=== PATIENT | female | born 1955 | race Caucasian/White ===

== ENCOUNTER 2019-07-16 10:05 | Emergency (ER) | payer MEDICARE ==
[~2019-07-16] VITALS: Ht 175 cm; Wt 72.0 kg
[2019-07-16 10:58] LABS: BASOPHILS % (AUTO) 1 % (0-10); EOSINOPHILS # (AUTO) 0.1 10^3/uL (0.0-0.3); EOSINOPHILS % (AUTO) 4 % (0-10); HEMATOCRIT 40 % (35-52); HEMOGLOBIN 13.8 G/DL (11.5-16.0); LYMPHOCYTES # (AUTO) 0.9 X 10^3 (1.0-4.0); LYMPHOCYTES % (AUTO) 24 % (12-44); MEAN CORPUSCULAR HEMOGLOBIN 31 PG (25-34); MEAN CORPUSCULAR HGB CONC 34 G/DL (32-36); MEAN CORPUSCULAR VOLUME 90 FL (80-99); MEAN PLATELET VOLUME 9.9 FL (7.4-10.4); MONOCYTES # (AUTO) 0.4 X 10^3 (0.0-1.0); MONOCYTES % (AUTO) 12 % (0-12); NEUTROPHILS # (AUTO) 2.3 X 10^3 (1.8-7.8); NEUTROPHILS % (AUTO) 60 % (42-75); PLATELET COUNT 237 10^3/uL (130-400); RED CELL DISTRIBUTION WIDTH 12.6 % (10.0-14.5); WHITE BLOOD COUNT 3.8 10^3/uL (4.3-11.0)
--- NOTE | 2019-07-16 10:59 | NUR ---
SEE LIST FOR CURRENT MEDS
[2019-07-16] MEDS ORDERED: hydrALAZINE (APESOLINE) 20 MG/ML VIAL IV ONE (11:00)
[2019-07-16] MEDS ORDERED: RT-ALBUTEROL/IPRATROPIUM 3 ML (DUONEB) VIAL INH ONE (11:00)
[2019-07-16 11:11] LABS: INR 0.9 (0.8-1.4); PROTHROMBIN TIME PATIENT 12.7 SEC (12.2-14.7)
[2019-07-16 11:18] LABS: ALBUMIN 4.1 GM/DL (3.2-4.5); BILIRUBIN,TOTAL 0.3 MG/DL (0.1-1.0); CALCIUM 9.5 MG/DL (8.5-10.1); CREATININE SERUM 1.08 MG/DL (0.60-1.30); POTASSIUM 4.1 MMOL/L (3.6-5.0); TOTAL PROTEIN 7.1 GM/DL (6.4-8.2)
--- NOTE | 2019-07-16 11:24 | Diagnostic Imaging Report ---
INDICATION: Shortness of air. COMPARISON: None available. TECHNIQUE: Single radiograph of the chest dated 07/16/2019. FINDINGS: The cardiac silhouette and pulmonary vasculature are within normal limits. The lungs are clear of focal pulmonary opacity. No pleural effusion. No pneumothorax. No acute osseous abnormality. IMPRESSION: No acute cardiopulmonary abnormality. Dictated by: Dictated on workstation # [id number]
--- NOTE | 2019-07-16 11:35 | ED General ---
General Chief Complaint: Respiratory Problems Stated Complaint: SOA Nursing Triage Note: PT CO OF SOA AMBULATED TO ROOM 5. PT O2 SAT 89% ON ROOM AIR. PT STATES HAS HAD COLD FOR A FEW DAYS. HAS SEVERAL AUTOIMMUNE PROBLEMS. Nursing Sepsis Screen: No Definite Risk Source of Information: Patient Exam Limitations: No Limitations History of Present Illness Date Seen by Provider: Jul 16, 2019 Time Seen by Provider: 10:36 Initial Comments Here with report of low O2 sat and has had a cold for several days. She does have history of lupus as well as rheumatoid arthritis and she is on immune modulating her medication including CellCept. Denies recent fevers. States overnight it got much worse. She was using her albuterol inhaler at home but that didn't help. She has history of mild COPD but hasn't had significant problems with that. Used to smoke but does not anymore and smoked only lightly she states. Timing/Duration: 1 Week, Getting Worse Severity: Moderate Associated Systoms: No Chest Pain, No Fever/Chills, No Headaches, No Nausea/Vomiting; Shortness of Air, Weakness Allergies and Home Medications Allergies Coded Allergies: Sulfa (Sulfonamide Antibiotics) (Verified Allergy, Unknown, 07/16/19) erythromycin base (Verified Allergy, Unknown, 07/16/19) Patient Home Medication List Home Medication List Reviewed: Yes Review of Systems Review of Systems Constitutional: see HPI; No chills, No fever; malaise, weakness EENTM: nose congestion, throat pain Respiratory: cough, dyspnea on exertion, short of breath Cardiovascular: no symptoms reported Gastrointestinal: no symptoms reported Musculoskeletal: joint pain, muscle pain Skin: no symptoms reported Psychiatric/Neurological: See HPI All Other Systems Reviewed Negative Unless Noted: Yes Past Rzuguck-Uiejys-Uiibtu Hx Past Med/Social Hx: Reviewed Nursing Past Med/Soc Hx Patient Social History Alcohol Use: Denies Use Recreational Drug Use: No Smoking Status: Former Smoker Recent Foreign Travel: No Contact w/Someone Who Travel: No Recent Infectious Disease Expo: No Past Medical History Surgeries: Yes Orthopedic Respiratory: Yes COPD Cardiac: No Genitourinary: No Gastrointestinal: No Musculoskeletal: Yes Fibromyalgia, Rheumatoid Arthritis Endocrine: Yes Lupus Psychosocial: Yes Family Medical History Reviewed Nursing Family Hx No Pertinent Family Hx Physical Exam-Suspected Sepsis Physical Exam Vital Signs Vital Signs - First Documented 07/16/19 10:05 Temp 36.5 Pulse 86 Resp 22 B/P (MAP) 210/107 (141) Pulse Ox 89 O2 Delivery Nasal Cannula O2 Flow Rate 2.00 Capillary Refill : Less Than 3 Seconds Blood Pressure Mean: 141 POS Height, Weight, BMI Height: '" Weight: lbs. oz. kg; 23.00 BMI Method: General Appearance: No Apparent Distress, WD/WN HEENT: PERRL/EOMI, Pharyngeal Erythema, Other (moderate bilateral nasal congestion and erythema) Neck: Non Tender, Supple Respiratory: No Accessory Muscle Use, No Respiratory Distress, Crackles (few at bilateral bases) Cardiovascular: Regular Rate, Rhythm, No Murmur Gastrointestinal: Non Tender, Soft Extremity: Normal Range of Motion, Non Tender Neurologic/Psychiatric: Alert, Oriented x3 Skin: normal color, warm/dry Focused Exam Lactate Level 07/16/19 10:10: Lactic Acid Level 1.27 Lactic Acid Level Laboratory Tests Test 07/16/19 10:10 Lactic Acid Level 1.27 MMOL/L (0.50-2.00) Progress/Results/Core Measures Suspected Sepsis Recent Fever Within 48 Hours: No Infection Criteria Present: None New/Unexplained Altered Menta: No Sepsis Screen: No Definite Risk SIRS Temperature: Pulse: 86 Respiratory Rate: 22 Laboratory Tests 07/16/19 10:10: White Blood Count 3.8L Blood Pressure 210 /107 Mean: 141 07/16/19 10:10: Lactic Acid Level 1.27 Laboratory Tests 07/16/19 10:10: Creatinine 1.08, INR Comment 0.9, Platelet Count 237, Total Bilirubin 0.3 Results/Orders Lab Results Laboratory Tests Test 07/16/19 10:10 07/16/19 11:50 Range/Units White Blood Count 3.8 L 4.3-11.0 10^3/uL Red Blood Count 4.48 4.35-5.85 10^6/uL Hemoglobin 13.8 11.5-16.0 G/DL Hematocrit 40 35-52 % Mean Corpuscular Volume 90 80-99 FL Mean Corpuscular Hemoglobin 31 25-34 PG Mean Corpuscular Hemoglobin Concent 34 32-36 G/DL Red Cell Distribution Width 12.6 10.0-14.5 % Platelet Count 237 130-400 10^3/uL Mean Platelet Volume 9.9 7.4-10.4 FL Neutrophils (%) (Auto) 60 42-75 % Lymphocytes (%) (Auto) 24 12-44 % Monocytes (%) (Auto) 12 0-12 % Eosinophils (%) (Auto) 4 0-10 % Basophils (%) (Auto) 1 0-10 % Neutrophils # (Auto) 2.3 1.8-7.8 X 10^3 Lymphocytes # (Auto) 0.9 L 1.0-4.0 X 10^3 Monocytes # (Auto) 0.4 0.0-1.0 X 10^3 Eosinophils # (Auto) 0.1 0.0-0.3 10^3/uL Basophils # (Auto) 0.0 0.0-0.1 10^3/uL Prothrombin Time 12.7 12.2-14.7 SEC INR Comment 0.9 0.8-1.4 Activated Partial Thromboplast Time 31 24-35 SEC Sodium Level 138 135-145 MMOL/L Potassium Level 4.1 3.6-5.0 MMOL/L Chloride Level 103 98-107 MMOL/L Carbon Dioxide Level 22 21-32 MMOL/L Anion Gap 13 5-14 MMOL/L Blood Urea Nitrogen 16 7-18 MG/DL Creatinine 1.08 0.60-1.30 MG/DL Estimat Glomerular Filtration Rate 51 BUN/Creatinine Ratio 15 Glucose Level 93 70-105 MG/DL Lactic Acid Level 1.27 0.50-2.00 MMOL/L Calcium Level 9.5 8.5-10.1 MG/DL Corrected Calcium 9.4 8.5-10.1 MG/DL Total Bilirubin 0.3 0.1-1.0 MG/DL Aspartate Amino Transf (AST/SGOT) 19 5-34 U/L Alanine Aminotransferase (ALT/SGPT) 8 0-55 U/L Alkaline Phosphatase 99 40-136 U/L B-Type Natriuretic Peptide 51.1 <100.0 PG/ML Total Protein 7.1 6.4-8.2 GM/DL Albumin 4.1 3.2-4.5 GM/DL Urine Color YELLOW Urine Clarity CLEAR Urine pH 6.0 5-9 Urine Specific [place] <=1.005 1.016-1.022 Urine Protein NEGATIVE NEGATIVE Urine Glucose (UA) NEGATIVE NEGATIVE Urine Ketones NEGATIVE NEGATIVE Urine Nitrite NEGATIVE NEGATIVE Urine Bilirubin NEGATIVE NEGATIVE Urine Urobilinogen 0.2 < = 1.0 MG/DL Urine Leukocyte Esterase NEGATIVE NEGATIVE Urine RBC (Auto) TRACE-I NEGATIVE Urine RBC 0-2 /HPF Urine WBC 0-2 /HPF Urine Squamous Epithelial Cells 2-5 /HPF Urine Crystals NONE /LPF Urine Bacteria TRACE /HPF Urine Casts NONE /LPF Urine Mucus NEGATIVE /LPF Urine Culture Indicated CULTURE PENDING My Orders Orders - ROMÁN RAMIREZ MD Cbc With Automated Diff (07/16/19 10:45) Comprehensive Metabolic Panel (07/16/19 10:45) Blood Culture (07/16/19 10:45) Sputum Culture (07/16/19 10:45) Urinalysis (07/16/19 10:45) Urine Culture (07/16/19 10:45) Protime With Inr (07/16/19 10:45) Partial Thromboplastin Time (07/16/19 10:45) Chest 1 View, Ap/Pa Only (07/16/19 10:45) Ed Iv/Invasive Line Start (07/16/19 10:45) Vital Signs Adult Sepsis Patie Q15M (07/16/19 10:45) O2 (07/16/19 10:45) Remove Rings In Anticipation O (07/16/19 10:45) Lactic Acid Analyzer (07/16/19 10:45) Albuterol/Ipra Inhalation Soln (Duoneb I (07/16/19 11:00) Svn Small Volume Nebulizer (07/16/19 10:47) BNP (07/16/19 10:47) Hydralazine Injection (Apresoline Inject (07/16/19 11:00) Methylprednisolone Sod Succ (Solu-Medrol (07/16/19 11:54) Medications Given in ED Current Medications Medications Dose Ordered Sig/Chung Route Start Time Stop Time Status Last Admin Dose Admin Albuterol/ Ipratropium 3 ml ONCE ONCE INH 07/16/19 11:00 07/16/19 11:01 DC 07/16/19 12:12 3 ML Hydralazine HCl 10 mg ONCE ONCE IV 07/16/19 11:00 07/16/19 11:01 DC 07/16/19 11:45 10 MG Vital Signs/I&O 07/16/19 07/16/19 10:05 12:13 Temp 36.5 Pulse 86 Resp 22 B/P (MAP) 210/107 (141) Pulse Ox 89 98 O2 Delivery Nasal Cannula Nasal Cannula O2 Flow Rate 2.00 2.00 Capillary Refill : Less Than 3 Seconds Blood Pressure Mean: 141 POS Progress Note : Progress Note Seen and evaluated. IV, labs, blood cultures and lactic acid ordered. Hydralazine 10 mg IV. Chest x-ray ordered. Monitor patient. Duo neb treatment ordered. 1210: Doing better. No significant findings on labs or x-ray. We are pending completion of the treatment and will monitor to ensure that she is OK off oxygen. Solu-Medrol 125 mg IV has been ordered. I did discuss with her about her blood pressure and she states that at home she is not having problems. I hate to start blood pressure agents only to find out that she has normal blood pressure home and this is related to presentation to the hospital and not true blood pressure. This was discussed with the patient and family who agree. Given that she is on immunomodulators, I will initiate antibiotics outpatient and steroids as well. This was discussed with patient and family who agree as well. Continue to monitor. 1240: Overall doing better. Discharged home with return precautions. Patient verbalize understanding instructions and agreement with plan. She is 96% on room air. ECG Initial ECG Impression Date: Jul 16, 2019 Initial ECG Impression Time: 10:11 Initial ECG Rate: 88 Initial ECG Rhythm: Normal Sinus Comment Sinus rhythm with first-degree AV block. No evidence of ST elevation CT. No previous available for comparison. Interpreted by me. Diagnostic Imaging Diagonstic Imaging: Xray Plain Films/CT/US/NM/MRI: chest Comments [facility], [facility]. POS [place], [place] POS NAME: GABI PRIEST [facility] REC#: [id number] PT STATUS: REG ER : 1955 PHYSICIAN: ROMÁN RAMIREZ MD ADMIT DATE: 07/16/19/ER Draft POSDate of Exam:07/16/19 CHEST 1 VIEW, AP/PA ONLY INDICATION: Shortness of air. COMPARISON: None available. TECHNIQUE: Single radiograph of the chest dated 07/16/2019. FINDINGS: The cardiac silhouette and pulmonary vasculature are within normal limits. The lungs are clear of focal pulmonary opacity. No pleural effusion. No pneumothorax. No acute osseous abnormality. IMPRESSION: No acute cardiopulmonary abnormality. Dictated on workstation # [id number] Dict: 07/16/19 1122 Trans: 07/16/19 1124 [facility] [id number] Interpreted by: LEANNE SANTOS MD Electronically signed by: Departure Impression Primary Impression: Bronchitis Additional Impression: Acute sinusitis Qualified Codes: J01.90 - Acute sinusitis, unspecified Disposition: HOME, SELF-CARE Condition: Stable Departure-Patient Inst. Decision time for Depature: 12:30 Patient Instructions: Sinusitis, Adult (DC), Acute Bronchitis, Adult (DC) Add. Discharge Instructions: All discharge instructions reviewed with patient and/or family. Voiced understanding. Take medications as directed. Follow-up with your Dr. in a few days for recheck. Return for worse pain, fever, vomiting, weakness, breathing problems or other concerns as needed. You should take the prednisone in the morning to reduce possibility of insomnia. You may use [id number] Afrin nasal spray or the generic, 12 hour relief, 2 sprays to each nostril twice daily for 3 days only and then stop. Do not use more than 3 days. Scripts Prednisone (Prednisone) 20 Mg Tab 40 MG PO DAILY, #10 TAB 0 Refills Prov: ROMÁN RAMIREZ MD 07/16/19 Cefdinir (Cefdinir) 300 Mg Capsule 300 MG PO BID, #14 CAP 0 Refills Prov: ROMÁN RAMIREZ MD 07/16/19 ROMÁN RAMIREZ MD Jul 16, 2019 11:35 POS
[2019-07-16] MEDS ORDERED: methylPREDNISolone 125 MG (Solu-MEDROL) VIAL IV STA (11:54)
[2019-07-16 11:55] LABS: BILIRUBIN,URINE NEGATIVE (NEGATIVE); CLARITY,URINE CLEAR; COLOR,URINE YELLOW; GLUCOSE, URINE (UA) NEGATIVE (NEGATIVE); KETONES,URINE NEGATIVE (NEGATIVE); LEUKOCYTE ESTERASE ,URINE NEGATIVE (NEGATIVE); NITRITE,URINE NEGATIVE (NEGATIVE); PROTEIN,URINE NEGATIVE (NEGATIVE)
[2019-07-16 12:01] LABS: BACTERIA,URINE TRACE /HPF; RBC,URINE 0-2 /HPF; WBC,URINE 0-2 /HPF
[2019-07-16] MEDS ORDERED: CEFD300C3 PO (12:39)
[2019-07-16] MEDS ORDERED: PRD20T PO (12:39)
[2019-07-16 12:51] VITALS: BP 137/95
== END 2019-07-16 12:51 | disposition home or self-care (01) ==
LOC: ER 10:05
DX: J40 Bronchitis, not specified as acute or chronic (principal); J01.90 Acute sinusitis, unspecified; J44.0 Chronic obstructive pulmonary disease with (acute) lower respiratory infection; M06.9 Rheumatoid arthritis, unspecified; M79.7 Fibromyalgia; Z87.39 Personal history of other diseases of the musculoskeletal system and connective tissue; Z87.891 Personal history of nicotine dependence; Z88.2 Allergy status to sulfonamides; Z88.1 Allergy status to other antibiotic agents
CPT/HCPCS: 36415; 71045; 80053; 81000; 83605; 83880; 85025; 85610; 85730; 87040; 87088; 94640